=== PATIENT | female | born 1990 | race Caucasian/White ===

== ENCOUNTER 2021-06-29 06:41 | Day surgery (SDC) | payer BC ==
[2021-06-29] MEDS ORDERED: HYDROmorphone 2 MG/ML SDV IV ONE (06:42)
[2021-06-29] MEDS ORDERED: Rocuronium 100 MG/10 ML MDV IV ONE (06:42)
[2021-06-29] MEDS ORDERED: Propofol 200 MG/20 ML SDV IV ONE (06:42)
[2021-06-29] MEDS ORDERED: Lidocaine 2% 5 ML SDV INJECT ONE (06:42)
[2021-06-29] MEDS ORDERED: Lactated Ringers 1,000 ML IV ONE (06:42)
[2021-06-29] MEDS ORDERED: Dexamethasone 4 MG/ML 5 ML MDV IVPUSH ONE (06:42)
[2021-06-29] MEDS ORDERED: Metoprolol Tartrate 5 MG/5 ML SDV IV ONE (06:42)
[2021-06-29] MEDS ORDERED: Sugammadex Sodium 200 MG/2 ML VIAL IV ONE (06:42)
[2021-06-29] MEDS ORDERED: Midazolam 1 MG/ML 2 ML SDV IV ONE (06:42)
[2021-06-29] MEDS ORDERED: Sodium Chloride 0.9% 10 ML Syringe FLUSH PRN (06:45)
[2021-06-29] MEDS ORDERED: Lactated Ringers 1,000 ML IV SCH (06:45)
[2021-06-29] MEDS ORDERED: Acetaminophen 500 MG Tab PO ONE (07:00)
[2021-06-29] MEDS ORDERED: Ondansetron 8 MG Tab.DIS PO ONE (07:00)
--- NOTE | 2021-06-29 09:16 | PCM.HPR ---
H & P Addendum review - H & P Addendum Review Date of Original H & P: 06/22/21 Date Reviewed: 06/29/21 Time Reviewed: 07:55 Patient was Examined: No Changes
--- NOTE | 2021-06-29 09:19 | PCM.OPNOTE ---
- General Post-Op/Procedure Note Date of Surgery/Procedure: 06/29/21 Operative Procedure(s): Lap Liz Pre Op Diagnosis: Symptomatic Cholelithiasis Post-Op Diagnosis: Same Anesthesia Technique: General ET Tube Primary Surgeon: Anil YOU in mLs: 20 Complications: None Condition: Good
[2021-06-29] MEDS ORDERED: Ondansetron 4 MG/2 ML SDV IVPUSH ONE (09:45)
--- NOTE | 2021-06-29 13:20 | OR ---
DATE OF OPERATION: 06/29/2021 SURGEON: Anil Desouza MD PREOPERATIVE DIAGNOSIS: Symptomatic cholelithiasis. POSTOPERATIVE DIAGNOSIS: Symptomatic cholelithiasis. PROCEDURE: Laparoscopic cholecystectomy. ANESTHESIA: General. PROCEDURE IN DETAIL: The patient was brought to the operating room where general endotracheal anesthesia was administered. Time-out was performed. The abdomen was prepped and draped sterilely. An infraumbilical incision was made and extended into the peritoneal cavity without difficulty. The Libra cannulator was introduced and pneumoperitoneum obtained. The remaining three 5 mm ports were placed in the usual positions. The patient was placed in reverse Trendelenburg position and rotated to the left. The gallbladder was grasped and retracted cephalad. The cystic duct and cystic artery were dissected free without difficulty. Cystic artery was doubly clipped proximally and once distally and then transected. The cystic duct was milked into the gallbladder, then doubly clipped proximally and once distally, and then transected. The gallbladder was removed from the bed of the liver with some difficulty because of vascularity and some inflammation. There was a posterior branch of the cystic artery that I did doubly clip proximally and cauterize distally. Once the gallbladder was completely freed up, it was brought out through the umbilical incision site. The right upper quadrant was thoroughly irrigated and inspected and hemostasis assured. All clips were in place. The rest of the general exploration revealed the liver, stomach, peritoneal and omental surfaces to appear normal. Ports were removed under direct vision and remained hemostatic. Umbilical fascia was closed with [id number] 0 Vicryl. The skin was closed with 4-0 Vicryl subcuticular sutures. Benzoin and Steri-Strips were placed and Band-Aids applied. The patient tolerated the procedure well. Estimated blood loss was 20 mL. She returned to postanesthesia in stable condition. /[id number]/MIREYA
== END 2021-06-29 11:15 | disposition home or self-care (01) ==
LOC: FB.SDS 06:41
PROVIDERS: ATTEND Surgery
DX: K80.10 Calculus of gallbladder with chronic cholecystitis without obstruction (principal); Z79.899 Other long term (current) drug therapy; K21.9 Gastro-esophageal reflux disease without esophagitis
CPT/HCPCS: 00790-QZ; 81025; 88304; A9270-GY; J1100; J1170; J2250; J2704; J3490; J7120